=== PATIENT | male | born 1965 | race Caucasian/White ===

== ENCOUNTER 2019-02-03 15:42 | Emergency (ER) | payer MEDICAID, OTHER ==
[~2019-02-03] VITALS: Ht 172.7 cm; Wt 76.7 kg
[2019-02-03] MEDS ORDERED: HYDROmorphone 1 mg/ml syringe IV ONE (15:50)
[2019-02-03] MEDS ORDERED: normal saline 1000ML IV soln IVB ONE (16:00)
[2019-02-03] MEDS ORDERED: ondansetron/PF 4mg/2ml inj IV ONE ×2 (16:00→18:40)
[2019-02-03] MEDS ORDERED: fentaNYL/PF 50MCG/1 ML 2ML syringe IV ONE ×3 (16:00→18:25)
[2019-02-03 16:08] LABS: BASOPHILS # (AUTO) 0.1 X10'3 (0-0.2); BASOPHILS % (AUTO) 0.4 % (0-1); EOSINOPHILS # (AUTO) 0.2 X10'3 (0-0.9); HEMATOCRIT 48.5 % (42.0-52.0); HEMOGLOBIN 15.9 g/dl (14.0-17.9); LYMPHOCYTES # (AUTO) 3.3 X10'3 (1.1-4.8); LYMPHOCYTES % (AUTO) 18.6 % (21-51); MEAN CORPUSCULAR HEMOGLOBIN 30.6 PG (27.0-31.0); MEAN CORPUSCULAR HGB CONC 32.9 g/dL (33.0-36.5); MEAN PLATELET VOLUME 7.1 FL (7.4-10.4); MONOCYTES # (AUTO) 1.1 X10'3 (0-0.9); NEUTROPHILS # (AUTO) 13.2 X10'3 (1.8-7.7); PLATELET COUNT 442 X10'3 (140-440); RED BLOOD COUNT 5.21 X10'6 (4.70-6.10); RED CELL DISTRIBUTION WIDTH 13.7 % (11.5-14.5); WHITE BLOOD COUNT 17.8 X10'3 (4.5-11.0)
[2019-02-03 16:19] LABS: ALANINE AMINOTRANSFERASE 36 U/L (12-78); ALBUMIN 4.2 G/DL (3.4-5.0); ALBUMIN/GLOBULIN RATIO 1.3 (1.1-1.5); ALKALINE PHOSPHATASE 62 IU/L (46-116); ANION GAP 10 (8-16); ASPARTATE AMINO TRANSFERASE 32 U/L (10-37); BILIRUBIN,TOTAL 0.7 MG/DL (0.1-1.0); BLOOD UREA NITROGEN 15 MG/DL (7-18); BUN/CREATININE RATIO 12.6 (5.4-32.0); CALCIUM 9.3 MG/DL (8.5-10.1); CHLORIDE 106 MMOL/L (99-107); CREATININE 1.19 MG/DL (0.60-1.10); GLUCOSE 187 MG/DL (70-104); POTASSIUM 4.9 MMOL/L (3.5-5.1); SODIUM 141 MMOL/L (135-145); TOTAL CARBON DIOXIDE 25.2 MMOL/L (24-32); TOTAL PROTEIN 7.5 G/DL (6.4-8.2); eGFR 64 ML/MIN
--- NOTE | 2019-02-03 16:19 | NUR ---
PT RETURNED FROM CT, PLACED BACK ON MONITOR, VITALS DOCUMENTED.
[2019-02-03 16:22] LABS: ETHANOL < 0.010 GM/DL (0.0-0.010); TROPONIN I < 0.04 NG/ML (0.0-0.05)
[2019-02-03] MEDS ORDERED: LIDOcaine 2% 10ml TOPICAL JELLY (Urojet) MM ONE (16:45)
[2019-02-03] MEDS ORDERED: CefTRIAXone 2gm/D5W 50ml 50 ML IV ONE (16:45)
[2019-02-03 17:02] LABS: CLARITY,URINE CLEAR (Clear); COLOR,URINE YELLOW (Yellow); GLUCOSE, URINE NEGATIVE (Neg); KETONES,URINE TRACE mg/dl (Neg); LEUKOCYTE ESTERASE ,URINE NEGATIVE (Neg); NITRITES, URINE NEGATIVE (Neg); OCCULT BLOOD,URINE NEGATIVE (Neg); PH,URINE 5.5 (4.8-8.0); PROTEIN,URINE NEGATIVE (Neg); UROBILINOGEN,URINE 0.2 E.U/dL (0.2-1.0)
[2019-02-03 17:07] LABS: UA COLLECTION TYPE FOLEY CATH
[2019-02-03] MEDS ORDERED: LIDOcaine 1% w/epiNEPHrine 1:200,000 30ml vial IM ONE (17:20)
[2019-02-03] MEDS ORDERED: TETanus/Pertussis (Acell)/Diphther VAC/PF (Tdap-Adult) 0.5ml syringe IM ONE (17:20)
[2019-02-03 17:21] LABS: URINE AMPHETAMINE SCREEN POSITIVE (Neg); URINE BARBITUATE SCREEN NEGATIVE (Neg); URINE BENZODIAZEPINES SCREEN NEGATIVE (Neg); URINE CANNABINOID SCREEN POSITIVE (Neg); URINE COCAINE SCREEN NEGATIVE (Neg); URINE METHADONE SCREEN NEGATIVE (Neg); URINE OPIATE SCREEN NEGATIVE (Neg); URINE PHENCYCLIDINE SCREEN NEGATIVE (Neg)
[2019-02-03] MEDS ORDERED: ketamine 10mg/ml 20ml inj IV ONE (17:35)
[2019-02-03] MEDS ORDERED: propofol 1000mg/100ml bottle 100 ML IV SCH (17:39)
[2019-02-03] MEDS ORDERED: LIDOcaine 1% 30ml preserv. free vial IJ ONE (17:40)
--- NOTE | 2019-02-03 17:53 | NUR ---
CONSENT OBTAINED FOR PT FOR CLOSED REDUCTION OF LEFT WRIST.
--- NOTE | 2019-02-03 18:28 | NUR ---
CALLED [facility] AT 18:28 STILL NOT AT [facility] AND NO ETA AVAILABLE
--- NOTE | 2019-02-03 18:40 | NUR ---
PT UPGRADED TO CODE 3 TRAFFIC. CALLED [facility] AT 18:39 FOR TRANSPORT
[2019-02-03 19:02] VITALS: BP 145/83
== END 2019-02-03 19:10 | disposition short-term general hospital (02) ==
LOC: ER 15:42
DX: S12.390A Other displaced fracture of fourth cervical vertebra, initial encounter for closed fracture (principal); S22.41XA Multiple fractures of ribs, right side, initial encounter for closed fracture; S52.572A Other intraarticular fracture of lower end of left radius, initial encounter for closed fracture; S27.321A Contusion of lung, unilateral, initial encounter; S01.01XA Laceration without foreign body of scalp, initial encounter; S01.81XA Laceration without foreign body of other part of head, initial encounter; S30.810A Abrasion of lower back and pelvis, initial encounter; S60.512A Abrasion of left hand, initial encounter; S60.511A Abrasion of right hand, initial encounter; R10.10 Upper abdominal pain, unspecified; F12.90 Cannabis use, unspecified, uncomplicated; V29.88XA Motorcycle rider (driver) (passenger) injured in other specified transport accidents, initial encounter; Y93.89 Activity, other specified; Y92.488 Other paved roadways as the place of occurrence of the external cause; Y99.8 Other external cause status
CPT/HCPCS: 12001; 25605; 36415; 70450; 70486; 71045; 71250; 72125; 72131; 73030; 73100; 73110; 73610; 74176; 80053; 80305; 80320; 81003; 84484; 85025; 85610; 86885; 86900; 86901; 90471; 90715; 93005; 96365; 96375; 96376; 99152; 99291; 99292; J0696; J1170; J2001; J2405; J2704; J3010; J7030; 96361